=== PATIENT | male | born 1955 | race Caucasian/White ===

== ENCOUNTER → 2018-07-24 16:26 | Outpatient (CLI) | payer OTHER, SELFPAY ==
[2018-07-27 19:47] LABS: Fecal Immunochemical Test NOT DETECTED
[2018-08-04 09:45] LABS: H. Pylori Antigen Stool NOT DETECTED
== END ==
PROVIDERS: PCP Family Medicine; Visit Provider Registered Nurse
DX: R19.5 Other fecal abnormalities (principal); R10.13 Epigastric pain
CPT/HCPCS: 82274; 86677

== ENCOUNTER → 2018-08-28 07:40 | Outpatient (CLI) | payer OTHER, SELFPAY ==
[2018-08-28 08:20] LABS: Add Manual Diff / Slide Review NO; Basophils Percent Auto 1.2 % (0-2); Eosinophils Percent Auto 3.2 % (2-4); Hematocrit 49.5 % (41-53); Lymphocytes Percent Auto 39.4 % (25-40); Mean Corpuscular HGB Conc 34.2 % (30-36); Mean Corpuscular Hemoglobin 30.6 PG (26-34); Mean Corpuscular Volume 89.5 fL (80-100); Monocytes Percent Auto 8.7 % (3-14); Neutrophils Absolute Auto 3600 /uL (3000-5900); Neutrophils Percent Auto 47.5 % (50-75); Platelet Count 272 X10^3/uL (150-400); Red Blood Cell Count 5.54 X10^6/uL (4.5-5.9); Red Cell Distribution Width 13.7 % (11.6-14.8); White Blood Cell Count 7.5 X10^3/uL (4.5-11.0)
[2018-08-28 08:37] LABS: Alanine Aminotransferase 35 IU/L (21-72); Albumin 4.5 g/dL (3.5-5.0); Albumin Globulin Ratio 1.5 (1.0-2.8); Alkaline Phosphatase 63 U/L (38-126); Aspartate Aminotransferase 25 IU/L (17-59); BUN Creatinine Ratio 11.3 (6-22); Bilirubin Total 0.8 mg/dL (0.2-1.3); Blood Urea Nitrogen 9 mg/dL (9-20); Calcium 9.1 mg/dL (8.4-10.2); Carbon Dioxide 34 mmol/L (22-32); Chloride 101 mmol/L (98-107); Cholesterol 258 mg/dL (140-199); Estimated Glomerular Filt Rate > 60.0 mL/min (>60); Glucose 102 mg/dL (80-110); HDL Cholesterol 51 mg/dL (40-60); HEMOLYSIS 15 (0-50); LDL Cholesterol Calculated 165 mg/dL (<100); Sodium 147 mmol/L (137-145); Total Protein 7.5 g/dL (6.3-8.2); Triglycerides 212 mg/dL (35-150)
[2018-08-28 09:23] LABS: Thyroid Stimulating Hormone 1.21 uIU/mL (0.47-4.68)
== END ==
PROVIDERS: PCP Family Medicine; Visit Provider Family Medicine
DX: E78.5 Hyperlipidemia, unspecified (principal); I10 Essential (primary) hypertension; Z12.5 Encounter for screening for malignant neoplasm of prostate; Z13.29 Encounter for screening for other suspected endocrine disorder
CPT/HCPCS: 36415; 80053; 80061; 84153; 84443; 85025

== ENCOUNTER 2019-12-01 12:21 | Day surgery (SDC) | payer OTHER, SELFPAY ==
--- NOTE | 2019-12-01 | PATH_ITS ---
[facility] Accession Number: [id number] . 01 Material submitted: . body - GE JUNCTION . 01 Clinical history: . BIOPSY FOR H.PYLORI SITE UPDATED BY NISHANT Farris, MEDICAL RECORDS, 12/02/2019 - [place] . 02 Diagnosis: Stomach, Biopsies: Gastric antral and body mucosa with mild chronic inflammation. Negative for Helicobacter organisms by immunohistochemistry. Negative for intestinal metaplasia. Negative for dysplasia and malignancy. V 12/03/2019 1256 Local . 02 Electronically signed: . Byron Maradiaga MD, PhD, Pathologist NPI- [id number] . 01 Gross description: . NO SITE DESIGNATED: Received in formalin are 2 fragment(s) of mercedes, soft tissue measuring 0.1 x 0.1 x 0.1 cm to 0.2 x 0.2 x 0.1 cm submitted entirely in 1 cassette(s) /[facility] 12/01/2019 2316 Local . 02 Microscopic: . An immunohistochemical stain was performed to evaluate for Helicobacter organisms and is negative. The control stain showed appropriate reactivity. . * This test was developed and its performance characteristics determined by [facility]. It has not been cleared or approved by the U.S. Food and Drug Administration. The FDA has determined that such clearance or approval is not necessary. This test is used for clinical purposes. It should not be regarded as investigational or for research. . 02 Pathologist provided ICD-10: K29.70 . 02 CPT . 048416, [id number] Performed at: 01 [facility] [address] [facility], [place], [place] [id number] MD Bentley Conley MD Phone: [phone] Performed at: 02 [facility] [place] [address] [place], [place] [id number] MD Ruby Norwood MD Phone: [phone]
[2019-12-01 12:43] VITALS: BP 152/97; PULSE 82; RESP 16; TEMP 36.2; O2SAT 95; BMI 29.2
[2019-12-01] MEDS: SODIUM CHLORIDE 0.9% 1,000 ML 21 ML IV (12:55)
--- NOTE | 2019-12-01 13:04 | PM.HP.1 ---
History of Present Illness History of Present Illness Date Patient Seen: 12/01/19 Time Patient Seen: 13:04 Chief complaint: [id number] Narrative: History of colon polyps with Patient History Family & Social History Social History: household members spouse lives independently Yes Tobacco & Substance use: Smoking Status Never smoker alcohol intake current alcohol intake frequency holiday/special occasion Substance Use Type marijuana Meds Home Medications and Allergies Home Medications Medication Instructions Recorded Confirmed Type omeprazole 20 mg PO PRN PRN 12/01/19 12/01/19 History Allergies Allergy/AdvReac Type Severity Reaction Status Date / Time contrast dye Allergy Severe anaphylaxis Uncoded 12/01/19 12:32 Exam Vital Signs (past 8 hours): - 12/01/19 12:43 Temperature 97.2 F L Pulse Rate 82 Respiratory Rate 16 Blood Pressure 152/97 H Pulse Oximetry 95 Oxygen Delivery Method Room Air Narrative Exam Narrative: Oropharynx free of lesions Chest clear to auscultation percussion Cardiac exam reveals no S3 or murmur Assessment & Plan Assessment & Plan narrative: History of colon polyps with recent symptoms of constipation and abdominal pain. Risks benefits alternatives have been explained to colonoscopy.
--- NOTE | 2019-12-01 13:05 | PM.OP.ENDO ---
Operative Date/Time/Diagnoses Date of procedure: 12/01/19 Time of procedure: 13:05 Pre-op diagnosis: See indication and findings Procedure & Clinicians Study performed: Colonoscopy and EGD. Indications: Abdominal pain constipation and history of colon polyps Surgeon: Fredrick Fisher Procedure Notes Procedure in detail: After informed consent was obtained the patient was placed in left lateral decubitus position. The video upper scope was placed into the oropharynx with the patient's help swelled to the esophagus. The esophagus stomach and duodenum were carefully examined. On withdrawal, retroflexed view the GE junction was performed. The scope was removed. The patient tolerated procedure well. Patient was then turned and the colonoscope substituted. This was passed from the rectum to the cecum. Preparation was good. On slow withdrawal mucosa was carefully examined. The scope was removed. The patient tolerated procedure well. Blood loss none Complications none Sedation Total sedation time 24 minutes Versed 9 mg fentanyl 150 micro g IV titration Findings EGD 1. Grade B esophagitis with 1 erosion 5 mm in size at the GE junction. There's also some irregularity of the squamocolumnar junction. This was trivial. 2. Patchy erythema of the gastric antrum biopsies taken to rule out Helicobacter 3. Normal duodenal bulb and sweep Colonoscopy 1. Left-sided diverticulosis, mild 2. Otherwise negative colonoscopy to cecum Patient will need follow-up colonoscopy in 5 years. We will be in touch regarding his biopsies of his stomach. He should increase his omeprazole to 20 mg b.i.d. or 40 mg daily.
[2019-12-01] MEDS: MIDAZOLAM 5 MG/5 ML VIAL IV (13:46)
[2019-12-01] MEDS: fentaNYL 250 MCG/5 ML INJ IV (13:46)
[2019-12-01 14:21] VITALS: BP 110/78; PULSE 69; RESP 11; TEMP 36.5; O2SAT 96
[2019-12-01 14:32] VITALS: BP 137/87; PULSE 67; RESP 12; O2SAT 93
[2019-12-01 14:36] VITALS: BP 121/86; PULSE 71; RESP 14; O2SAT 92
[2019-12-01 15:11] VITALS: BP 124/77; PULSE 76; RESP 16; TEMP 36.7; O2SAT 99
--- NOTE | 2019-12-01 15:27 | SUR.PHASEII ---
Pt left when ready and left in stable condition.
== END 2019-12-01 15:15 | disposition home or self-care (01) ==
PROVIDERS: PCP Family Medicine; Visit Provider Internal Medicine Gastroenterology
PROC: 0DJ08ZZ Inspection of Upper Intestinal Tract, Via Natural or Artificial Opening Endoscopic (ICD-10-PCS; CPT 43235; principal; 2019-12-01 13:30)
PROC: 0DJD8ZZ Inspection of Lower Intestinal Tract, Via Natural or Artificial Opening Endoscopic (ICD-10-PCS; CPT 45378; 2019-12-01 13:30)
DX: K29.70 Gastritis, unspecified, without bleeding (principal); K59.00 Constipation, unspecified; Z86.010 Personal history of colon polyps; K57.30 Diverticulosis of large intestine without perforation or abscess without bleeding; K20.8 Other esophagitis; F41.9 Anxiety disorder, unspecified
CPT/HCPCS: 43239; 45378; J2250; J3010

== ENCOUNTER → 2020-05-29 07:24 | Outpatient (CLI) | payer OTHER, SELFPAY ==
[2020-05-29 08:28] LABS: Alanine Aminotransferase 42 IU/L (<50); Albumin 4.5 g/dL (3.5-5.0); Albumin Globulin Ratio 1.7 (1.0-2.8); Alkaline Phosphatase 72 U/L (38-126); Aspartate Aminotransferase 30 IU/L (17-59); Bilirubin Total 0.9 mg/dL (0.2-1.3); Blood Urea Nitrogen 10 mg/dL (9-20); Calcium 9.3 mg/dL (8.4-10.2); Carbon Dioxide 30 mmol/L (22-32); Chloride 102 mmol/L (98-107); Cholesterol 256 mg/dL (140-199); Estimated Glomerular Filt Rate > 60.0 mL/min (>60); Globulin 2.6 g/dL (1.7-4.1); Glucose 105 mg/dL (80-110); HDL Cholesterol 59 mg/dL (40-60); HEMOLYSIS < 15 (0-50); LDL Cholesterol Calculated 153 mg/dL (<100); Potassium 4.2 mmol/L (3.4-5.1); Sodium 138 mmol/L (137-145); Total Protein 7.1 g/dL (6.3-8.2); Triglycerides 218 mg/dL (35-150)
[2020-05-29 08:58] LABS: Prostate Specific Antigen 1.58 ng/mL (0.10-4.00)
== END ==
PROVIDERS: PCP Family Medicine; Referring Provider Family Medicine; Visit Provider Family Medicine
DX: E78.5 Hyperlipidemia, unspecified (principal); I10 Essential (primary) hypertension; K21.9 Gastro-esophageal reflux disease without esophagitis
CPT/HCPCS: 36415; 80053; 80061; 84153

== ENCOUNTER → 2021-01-19 09:08 | Outpatient (CLI) | payer MEDICARE, OTHER, SELFPAY ==
[2021-01-19] MEDS: COVID-19 VACC, Ad26(JANSSEN)/PF 0.5 ML IM (09:17)
== END ==
PROVIDERS: PCP Family Medicine; Visit Provider Internal Medicine
DX: Z23 Encounter for immunization (principal)
CPT/HCPCS: 0031A; 91303